=== PATIENT | female | born 2000 | race African-American/Black ===

== ENCOUNTER 2018-10-02 17:22 | Emergency (ER) | payer SELFPAY ==
[~2018-10-02] VITALS: Ht 165.1 cm; Wt 69.9 kg
--- NOTE | 2018-10-02 18:16 | ED.ADGEN ---
Past History Past Medical History: No Pertinent History Past Surgical History: No Surgical History Alcohol Use: Occasionally Drug Use: None Adult General Chief Complaint Chief Complaint ".. I got this Rt flank pain and mid abdomen pain the last couple days... My mom thinks it my gall bladder..." HPI HPI Patient is a 18 year old female who presents with above hx and complaints of abd. pain on Rt side. Patient states pain seems to be in her mid abdomen to ri [facility] [place]. Pain started yesterday and has not improved. Patient states does not seem to be related to high-fat meals. No history of renal stones. Patient denies any intake bad food. Patient denies any trauma. Patient denies any history immunosuppression. Patient states he is just started her menstrual period. She denies any history of endometriosis or history of painful menses. She denies any history of STDs. Patient denies any vaginal discharge. No recent travel. Review of Systems Review of Systems Constitutional: Denies fever or chills [] Eyes: Denies change in visual acuity, redness, or eye pain [] HENT: Denies nasal congestion or sore throat [] Respiratory: Denies cough or shortness of breath [] Cardiovascular: No additional information not addressed in HPI [] GI: complaints of right sided abdominal pain, nausea,. Denies vomiting, bloody stools or diarrhea [] : Denies dysuria or hematuria [] Musculoskeletal: Denies back pain or joint pain [] Integument: Denies rash or skin lesions [] Neurologic: Denies headache, focal weakness or sensory changes [] Endocrine: Denies polyuria or polydipsia [] All other systems were reviewed and found to be within normal limits, except as documented in this note. Family History Family History Mother had gall stones Current Medications Current Medications Current Medications Medications (Trade) Dose Ordered Sig/Clay Start Time Stop Time Status Last Admin Dose Admin Ceftriaxone Sodium 1 gm/ Sodium Chloride 50 ml @ 100 mls/hr 1X ONCE 10/02/18 22:15 10/02/18 22:44 DC 10/02/18 22:32 100 MLS/HR Ceftriaxone Sodium (Rocephin) 1 gm STK-MED ONCE 10/02/18 22:22 10/02/18 22:23 DC Famotidine (Pepcid Vial) 20 mg 1X ONCE 10/02/18 20:00 10/02/18 20:01 DC 10/02/18 20:53 20 MG Iohexol (Omnipaque 240 Mg/ml) 30 ml 1X ONCE 10/02/18 22:45 10/02/18 22:46 DC 10/03/18 00:00 30 ML Iohexol (Omnipaque 300 Mg/ml) 75 ml 1X ONCE 10/02/18 22:45 10/02/18 22:46 DC 10/03/18 00:00 75 ML Lactated Ringer's 1,000 ml @ 1,000 mls/hr 1X ONCE 10/02/18 22:15 10/02/18 23:14 DC 10/02/18 22:32 1,000 MLS/HR Metronidazole 100 ml @ 100 mls/hr 1X ONCE 10/02/18 22:15 10/02/18 23:14 DC 10/02/18 23:10 100 MLS/HR Morphine Sulfate (Morphine 10mg Syringe) 10 mg 1X ONCE 10/03/18 02:00 10/03/18 02:05 DC 10/03/18 02:04 10 MG Ondansetron HCl (Zofran) 8 mg 1X ONCE 10/03/18 02:00 10/03/18 02:01 DC 10/03/18 01:50 8 MG Sodium Chloride 50 ml @ As Directed STK-MED ONCE 10/02/18 22:22 10/02/18 22:23 DC See nursing for home medications Allergies Allergies Allergies Coded Allergies Type Severity Reaction Last Updated Verified No Known Drug Allergies 10/02/18 No Physical Exam Physical Exam Constitutional: Well developed, well nourished, moderately acute distress, non- toxic appearance. [] HENT: Normocephalic, atraumatic, bilateral external ears normal, oropharynx moist, no oral exudates, nose normal. [] Eyes: PERRLA, EOMI, conjunctiva normal, no discharge. [] Neck: Normal range of motion, no tenderness, supple, no stridor. [] Cardiovascular:Heart rate regular rhythm, no murmur [] Lungs & Thorax: Bilateral breath sounds equal at apex on auscultation [] Abdomen: Bowel sounds normal, soft, right mid and lower abdomen tenderness, no masses, no pulsatile masses. Does have some mild rebound to right side. Rectal exam heart stool in vault. Bimanual vaginal exam has tenderness and right adnexal area. No obvious discharge. No cervical motion tenderness. Skin: Warm, dry, no erythema, no rash. [] Back: No tenderness, no CVA tenderness. [] Extremities: No tenderness, no cyanosis, no clubbing, ROM intact, no edema. [] Very mild psoas on right on heeltap-somewhat equivocal Neurologic: Alert and oriented X 3, normal motor function, normal sensory function, no focal deficits noted. [] Psychologic: Affect anxious, judgement normal, mood normal. [] Current Patient Data Vital Signs Vital Signs Date Time Temp Pulse Resp B/P (MAP) Pulse Ox O2 Delivery O2 Flow Rate FiO2 10/03/18 02:35 98.8 81 14 122/74 (90) 100 Room Air Lab Results Laboratory Tests Test 10/02/18 18:00 10/02/18 18:16 10/02/18 20:40 Urine Collection Type Unknown Urine Color Red Urine Clarity Turbid Urine pH 6.0 Urine Specific Leighton >=1.030 Urine Protein >100 mg/dl (NEG-TRACE) Urine Glucose (UA) Neg mg/dL (NEG) Urine Ketones (Stick) Neg mg/dL (NEG) Urine Blood Large (NEG) Urine Nitrite Neg (NEG) Urine Bilirubin Neg (NEG) Urine Urobilinogen Dipstick 0.2 mg/dL (0.2 mg/dL) Urine Leukocyte Esterase Neg (NEG) Urine RBC Tntc /HPF (0-2) Urine WBC 0 /HPF (0-4) Urine Squamous Epithelial Cells Mod /LPF Urine Bacteria 0 /HPF (0-FEW) Urine Mucus Slight /LPF Urine Opiates Screen Neg (NEG) Urine Methadone Screen Neg (NEG) Urine Barbiturates Neg (NEG) Urine Phencyclidine Screen Neg (NEG) Urine Amphetamine/Methamphetamine Neg (NEG) Urine Benzodiazepines Screen Neg (NEG) Urine Cocaine Screen Neg (NEG) Urine Cannabinoids Screen Neg (NEG) Urine Ethyl Alcohol Neg (NEG) POC Urine HCG, Qualitative hcg negative (Negative) White Blood Count 8.2 x10^3/uL (4.0-11.0) Red Blood Count 3.52 x10^6/uL (3.50-5.40) Hemoglobin 10.4 g/dL (12.0-15.5) L Hematocrit 31.6 % (36.0-47.0) L Mean Corpuscular Volume 90 fL (79-100) Mean Corpuscular Hemoglobin 30 pg (25-35) Mean Corpuscular Hemoglobin Concent 33 g/dL (31-37) Red Cell Distribution Width 12.6 % (11.5-14.5) Platelet Count 446 x10^3/uL (140-400) H Neutrophils (%) (Auto) 70 % (31-73) Lymphocytes (%) (Auto) 22 % (24-48) L Monocytes (%) (Auto) 6 % (0-9) Eosinophils (%) (Auto) 1 % (0-3) Basophils (%) (Auto) 1 % (0-3) Neutrophils # (Auto) 5.8 x10^3uL (1.8-7.7) Lymphocytes # (Auto) 1.8 x10^3/uL (1.0-4.8) Monocytes # (Auto) 0.5 x10^3/uL (0.0-1.1) Eosinophils # (Auto) 0.1 x10^3/uL (0.0-0.7) Basophils # (Auto) 0.1 x10^3/uL (0.0-0.2) Prothrombin Time 10.4 SEC (9.4-11.4) Prothrombin Time INR 1.0 (0.9-1.1) PTT 26 SEC (23-33) Sodium Level 141 mmol/L (136-145) Potassium Level 3.4 mmol/L (3.5-5.1) L Chloride Level 106 mmol/L (98-107) Carbon Dioxide Level 27 mmol/L (21-32) Anion Gap 8 (6-14) Blood Urea Nitrogen 8 mg/dL (7-20) Creatinine 0.8 mg/dL (0.6-1.0) Estimated GFR (Cockcroft-Gault) 110.7 Glucose Level 93 mg/dL (70-99) Calcium Level 8.7 mg/dL (8.5-10.1) Total Bilirubin 0.3 mg/dL (0.2-1.0) Direct Bilirubin 0.1 mg/dL (0.0-0.2) Aspartate Amino Transferase (AST) 17 U/L (15-37) Alanine Aminotransferase (ALT) 14 U/L (14-59) Alkaline Phosphatase 73 U/L (46-116) Total Protein 7.7 g/dL (6.4-8.2) Albumin 3.3 g/dL (3.4-5.0) L Amylase Level 79 U/L (25-115) Lipase 86 U/L (73-393) EKG EKG [] Radiology/Procedures Radiology/Procedures My interpretation of Acute Abdomen film- shows no acute cardiopulmonary findings. No free air under diaphragm. Nonspecific bowel gas pattern. [] IMPRESSION: 1. There is free fluid within the abdomen and pelvis which is more than typically seen and suggestive of a pathologic process. There is also some edema seen to the mesentery within the pelvis. 2. The appendix is partially visualized and appears mildly dilated. This courses through a region of fluid therefore difficult to tell if there is adjacent inflammatory changes however given the dilation correlation is needed as to whether the patient is having symptoms of appendicitis given that if there is high clinical concern causes such as an early appendicitis is within the differential. Given that the dilation is only borderline however the diagnosis is not certain. If unclear clinically and further information is desired a follow-up CT could be obtained at a later time to assess for further increase in size of the appendix. 3. Within the pelvis there is a linear region of high density seen along the peritoneum. Difficult to tell if this is secondary to peritoneal enhancement from inflammation to the peritoneum or if this is from a small vessel coursing through the region. 4. Periportal edema within the liver. This is a nonspecific finding and can be secondary to the patient's hydration status however inflammation of the liver or biliary tree can also have this appearance. 5. There is some fullness of the left adnexa. Would correlate with symptoms in the region to ensure there is not a pathologic process and if further information is desired pelvic ultrasound could further evaluate Electronically signed by: Brisa Kaufman MD (10/03/2018 12:48 AM) [facility] DICTATED AND SIGNED BY: BRISA KAUFMAN MD DATE: 10/03/18 0048 CC: CHANTEL CH MD; PCP,NO ~ Course & Med Decision Making Course & Med Decision Making Pertinent Labs and Imaging studies reviewed. (See chart for details) Discussed presentation, testing, treatment plan with Dr. Winn and Dr. Beck. Patient to be transferred to [facility] for further evaluation and treatment. [] Final Impression Final Impression 1. Abdomen Pain[] 2. Hematuria-menstrual just started 3. Ovarian cyst 4. Dilated Appendix on CT- Early appendicitis ? 5. Normocytic anemia Dragon Disclaimer Dragon Disclaimer This electronic medical record was generated, in whole or in part, using a voice recognition dictation system. Discharge Summary Visit Information Final Diagnosis Problems Medical Problems: (1) Pain in the abdomen Status: Acute Brief Hospital Course Allergies Allergies Coded Allergies Type Severity Reaction Last Updated Verified No Known Drug Allergies 10/02/18 No Vital Signs Vital Signs Date Time Temp Pulse Resp B/P (MAP) Pulse Ox O2 Delivery O2 Flow Rate FiO2 10/03/18 02:35 98.8 81 14 122/74 (90) 100 Room Air Lab Results Laboratory Tests Test 10/02/18 18:00 10/02/18 18:16 10/02/18 20:40 Urine Collection Type Unknown Urine Color Red Urine Clarity Turbid Urine pH 6.0 Urine Specific Leighton >=1.030 Urine Protein >100 mg/dl (NEG-TRACE) Urine Glucose (UA) Neg mg/dL (NEG) Urine Ketones (Stick) Neg mg/dL (NEG) Urine Blood Large (NEG) Urine Nitrite Neg (NEG) Urine Bilirubin Neg (NEG) Urine Urobilinogen Dipstick 0.2 mg/dL (0.2 mg/dL) Urine Leukocyte Esterase Neg (NEG) Urine RBC Tntc /HPF (0-2) Urine WBC 0 /HPF (0-4) Urine Squamous Epithelial Cells Mod /LPF Urine Bacteria 0 /HPF (0-FEW) Urine Mucus Slight /LPF Urine Opiates Screen Neg (NEG) Urine Methadone Screen Neg (NEG) Urine Barbiturates Neg (NEG) Urine Phencyclidine Screen Neg (NEG) Urine Amphetamine/Methamphetamine Neg (NEG) Urine Benzodiazepines Screen Neg (NEG) Urine Cocaine Screen Neg (NEG) Urine Cannabinoids Screen Neg (NEG) Urine Ethyl Alcohol Neg (NEG) Bedside Urine HCG, Qualitative hcg negative (Negative) White Blood Count 8.2 x10^3/uL (4.0-11.0) Red Blood Count 3.52 x10^6/uL (3.50-5.40) Hemoglobin 10.4 g/dL (12.0-15.5) Hematocrit 31.6 % (36.0-47.0) Mean Corpuscular Volume 90 fL (79-100) Mean Corpuscular Hemoglobin 30 pg (25-35) Mean Corpuscular Hemoglobin Concent 33 g/dL (31-37) Red Cell Distribution Width 12.6 % (11.5-14.5) Platelet Count 446 x10^3/uL (140-400) Neutrophils (%) (Auto) 70 % (31-73) Lymphocytes (%) (Auto) 22 % (24-48) Monocytes (%) (Auto) 6 % (0-9) Eosinophils (%) (Auto) 1 % (0-3) Basophils (%) (Auto) 1 % (0-3) Neutrophils # (Auto) 5.8 x10^3uL (1.8-7.7) Lymphocytes # (Auto) 1.8 x10^3/uL (1.0-4.8) Monocytes # (Auto) 0.5 x10^3/uL (0.0-1.1) Eosinophils # (Auto) 0.1 x10^3/uL (0.0-0.7) Basophils # (Auto) 0.1 x10^3/uL (0.0-0.2) Prothrombin Time 10.4 SEC (9.4-11.4) Prothromb Time International Ratio 1.0 (0.9-1.1) Activated Partial Thromboplast Time 26 SEC (23-33) Sodium Level 141 mmol/L (136-145) Potassium Level 3.4 mmol/L (3.5-5.1) Chloride Level 106 mmol/L (98-107) Carbon Dioxide Level 27 mmol/L (21-32) Anion Gap 8 (6-14) Blood Urea Nitrogen 8 mg/dL (7-20) Creatinine 0.8 mg/dL (0.6-1.0) Estimated GFR (Cockcroft-Gault) 110.7 Glucose Level 93 mg/dL (70-99) Calcium Level 8.7 mg/dL (8.5-10.1) Total Bilirubin 0.3 mg/dL (0.2-1.0) Direct Bilirubin 0.1 mg/dL (0.0-0.2) Aspartate Amino Transf (AST/SGOT) 17 U/L (15-37) Alanine Aminotransferase (ALT/SGPT) 14 U/L (14-59) Alkaline Phosphatase 73 U/L (46-116) Total Protein 7.7 g/dL (6.4-8.2) Albumin 3.3 g/dL (3.4-5.0) Amylase Level 79 U/L (25-115) Lipase 86 U/L (73-393) Brief Hospital Course Ms. Willson is a 18 old female who presented with abd. pain. Transfer to [facility] Dr. Winn, Consult to Surgery. Possible early appendicitis . Discharge Information Condition at Discharge: Stable Dischare Medications Current Medications Lactated Ringer's 1,000 ml @ 1,000 mls/hr Q1H IV Last administered on 10/02/18at 20:51; Admin Dose 1,000 MLS/HR; Start 10/02/18 at 19:44; Stop 10/02/18 at 20:43; Status DC Ondansetron HCl (Zofran) 8 mg 1X ONCE IV Last administered on 10/02/18at 20:52; Admin Dose 8 MG; Start 10/02/18 at 20:00; Stop 10/02/18 at 20:01; Status DC Famotidine (Pepcid Vial) 20 mg 1X ONCE IVP Last administered on 10/02/18at 20:53; Admin Dose 20 MG; Start 10/02/18 at 20:00; Stop 10/02/18 at 20:01; Status DC Morphine Sulfate (Morphine 10mg Syringe) 10 mg 1X ONCE SQ Last administered on 10/02/18at 22:33; Admin Dose 10 MG; Start 10/02/18 at 22:30; Stop 10/02/18 at 22:31; Status DC Ceftriaxone Sodium 1 gm/ Sodium Chloride 50 ml @ 100 mls/hr 1X ONCE IV Last administered on 10/02/18at 22:32; Admin Dose 100 MLS/HR; Start 10/02/18 at 22:15; Stop 10/02/18 at 22:44; Status DC Metronidazole 100 ml @ 100 mls/hr 1X ONCE IV Last administered on 10/02/18at 23:10; Admin Dose 100 MLS/HR; Start 10/02/18 at 22:15; Stop 10/02/18 at 23:14; Status DC Lactated Ringer's 1,000 ml @ 1,000 mls/hr 1X ONCE IV Last administered on 10/02/18at 22:32; Admin Dose 1,000 MLS/HR; Start 10/02/18 at 22:15; Stop 10/02/18 at 23:14; Status DC Sodium Chloride 50 ml @ As Directed STK-MED ONCE .ROUTE ; Start 10/02/18 at 22:22; Stop 10/02/18 at 22:23; Status DC Ceftriaxone Sodium (Rocephin) 1 gm STK-MED ONCE .ROUTE ; Start 10/02/18 at 22:22; Stop 10/02/18 at 22:23; Status DC Iohexol (Omnipaque 240 Mg/ml) 30 ml 1X ONCE PO Last administered on 10/03/18at 00:00; Admin Dose 30 ML; Start 10/02/18 at 22:45; Stop 10/02/18 at 22:46; Status DC Iohexol (Omnipaque 300 Mg/ml) 75 ml 1X ONCE IV Last administered on 10/03/18at 00:00; Admin Dose 75 ML; Start 10/02/18 at 22:45; Stop 10/02/18 at 22:46; Status DC Ondansetron HCl (Zofran) 8 mg 1X ONCE IV Last administered on 10/03/18at 01:50; Admin Dose 8 MG; Start 10/03/18 at 02:00; Stop 10/03/18 at 02:01; Status DC Morphine Sulfate (Morphine 10mg Syringe) 10 mg 1X ONCE SQ Last administered on 10/03/18at 02:04; Admin Dose 10 MG; Start 10/03/18 at 02:00; Stop 10/03/18 at 02:05; Status DC Dragon Disclaimer This chart was dictated in whole or in part using Voice Recognition software in a busy, high-work load, and often noisy Emergency Department environment. It may contain unintended and wholly unrecognized errors or omissions. CHANTEL CH MD Oct 02, 2018 18:16
[2018-10-02 18:42] LABS: BILIRUBIN,URINE NEG (NEG); CLARITY,URINE TURBID; COLOR,URINE RED; GLUCOSE,URINE NEG (NEG)
[2018-10-02 18:43] LABS: BACTERIA,URINE 0 /HPF (0-FEW); NITRITE,URINE NEG (NEG); RBC,URINE TNTC /HPF (0-2); SQUAMOUS EPITHELIAL CELL,UR MOD /LPF; UROBILINOGEN,URINE 0.2 mg/dL (0.2 mg/dL); WBC,URINE 0 /HPF (0-4)
[2018-10-02 18:47] LABS: BARBITURATES NEG (NEG); BENZODIAZEPINES NEG (NEG); CANNABINOIDS NEG (NEG); COCAINE NEG (NEG); METHADONE NEG (NEG); OPIATES NEG (NEG); PHENCYCLIDINE NEG (NEG)
[2018-10-02 18:48] LABS: AMPHETAMINE/METHAMPHETAMINE NEG (NEG)
--- NOTE | 2018-10-02 20:39 | RAD ---
Abdominal and Pelvis CT, Without Contrast: History: Right upper quadrant pain. Comparison: None. Procedure: Axial images are obtained of the abdomen and pelvis, without IV or oral contrast. CT Abdomen without Contrast: Findings: Evaluation of solid organs is limited without contrast. Evaluation of stomach and bowel is limited without oral contrast. The gallbladder is collapsed but otherwise appears normal. There is a trace of free fluid in the paracolic gutters. Liver: Normal. Spleen: Normal. Pancreas: Normal. Adrenal Glands: Normal. Kidneys: Normal. There is no free air or free fluid. There is no lymphadenopathy. Impression: Please see CT Pelvis without Contrast. End Impression. CT Pelvis without Contrast: Findings: The urinary bladder appears normal. There is mild to moderate free fluid. There is no lymphadenopathy. There is no pericolonic inflammation identified. The appendix is not seen. Impression: Mild to moderate free fluid in the pelvis. This is greater than expected for physiologic activity. A ruptured ovarian cyst is possible. must be excluded in order to exclude possible ruptured ectopic. End impression PQRS Compliance Statement: One or more of the following individualized dose reduction techniques were utilized for this examination: 1. Automated exposure control 2. Adjustment of the mA and/or kV according to patient size 3. Use of iterative reconstruction technique Electronically signed by: Karri Zazueta III, MD (10/02/2018 8:36 PM) [facility]
[2018-10-02] MEDS: IV RINGERS SOLUTION,LACTATED 1,000 ML IV SCH (20:51)
[2018-10-02] MEDS: ONDANSETRON PF 4 MG/2 ML VIAL. IV ONE (20:52)
[2018-10-02] MEDS: FAMOTIDINE 20 MG/2 ML VIAL IVP ONE (20:53)
[2018-10-02 21:02] LABS: BASO # 0.1 x10^3/uL (0.0-0.2); BASO % 1 % (0-3); EOS # 0.1 x10^3/uL (0.0-0.7); EOS % 1 % (0-3); HEMATOCRIT 31.6 % (36.0-47.0); HEMOGLOBIN 10.4 g/dL (12.0-15.5); LYMPH # 1.8 x10^3/uL (1.0-4.8); LYMPH % 22 % (24-48); MEAN CORPUSCULAR HEMOGLOBIN 30 pg (25-35); MEAN CORPUSCULAR HGB CONC 33 g/dL (31-37); MEAN CORPUSCULAR VOLUME 90 fL (79-100); MONO # 0.5 x10^3/uL (0.0-1.1); MONO % 6 % (0-9); NEUT # 5.8 x10^3uL (1.8-7.7); NEUT % 70 % (31-73); PLATELET COUNT 446 x10^3/uL (140-400); RED BLOOD COUNT 3.52 x10^6/uL (3.50-5.40); RED CELL DISTRIBUTION WIDTH 12.6 % (11.5-14.5); WHITE BLOOD COUNT 8.2 x10^3/uL (4.0-11.0)
[2018-10-02 21:19] LABS: ALBUMIN 3.3 g/dL (3.4-5.0); CALCIUM 8.7 mg/dL (8.5-10.1); CREATININE 0.8 mg/dL (0.6-1.0); DIRECT BILIRUBIN 0.1 mg/dL (0.0-0.2); GFR 110.7; POTASSIUM 3.4 mmol/L (3.5-5.1); TOTAL BILIRUBIN 0.3 mg/dL (0.2-1.0); TOTAL PROTEIN 7.7 g/dL (6.4-8.2)
[2018-10-02] MEDS ORDERED: IV NORMAL SALINE 50ML 50 ML ONE (22:22)
[2018-10-02] MEDS ORDERED: cefTRIAXone SODIUM 1 GM VIAL ONE (22:22)
[2018-10-02] MEDS: IV RINGERS SOLUTION,LACTATED 1,000 ML IV ONE (22:32)
[2018-10-02] MEDS: MORPHINE SULFATE 10 MG/ML SYRINGE. SQ ONE (22:33)
--- NOTE | 2018-10-02 23:00 | RAD ---
Acute Abdominal Series: Technique: PA view of the chest and supine and upright views of the abdomen were obtained. History: Pain. Comparison: None. Findings: The lungs and pleural margins are clear. There is air and stool scattered throughout portions the colon. There is a paucity of small bowel gas. There is no free air. Impression: Nonobstructive bowel gas pattern suggesting constipation. Electronically signed by: Karri Zazueta III, MD (10/02/2018 10:57 PM) [facility]
[2018-10-03] MEDS: IOHEXOL 300 MG/ML 75 ML VIAL. IV ONE
[2018-10-03] MEDS: IOHEXOL 240 MG/ML 50ML VIAL. PO ONE
--- NOTE | 2018-10-03 00:51 | RAD ---
INDICATION: Continued severe right sided abdominal pain. Hx gallbladder crystals and sludge per sonogram COMPARISON: One day prior TECHNIQUE: Axial CT images obtained through the abdomen and pelvis with contrast. One or more of the following individualized dose reduction techniques were utilized for this examination: 1. Automated exposure control; 2. Adjustment of the mA and/or kV according to patient size; 3. Use of iterative reconstruction technique. FINDINGS: Right lower lung nodule is again seen measuring up to about 7 mm. Abdominal aorta is not aneurysmal. There is some periportal edema within the liver. Low-density adjacent to the falciform which is commonly from focal fat. Free fluid is identified within the pelvis as well as some within the abdomen including adjacent to the liver. Small amount of layering high density material within the gallbladder suspected. No peripancreatic fluid collection. Spleen unremarkable. No left-sided hydronephrosis. No right-sided hydronephrosis. There is some fullness of the left adnexa. Suspect a small amount of high density of the peritoneum within the pelvis. Also possible that this is secondary to a small vessel coursing through the region. The appendix is partially visualized measuring up to about 6 to 7 mm. No dilated loops of bowel to suggest obstruction. Suspected disc protrusions within the lumbar spine including at L5-S1. IMPRESSION: 1. There is free fluid within the abdomen and pelvis which is more than typically seen and suggestive of a pathologic process. There is also some edema seen to the mesentery within the pelvis. 2. The appendix is partially visualized and appears mildly dilated. This courses through a region of fluid therefore difficult to tell if there is adjacent inflammatory changes however given the dilation correlation is needed as to whether the patient is having symptoms of appendicitis given that if there is high clinical concern causes such as an early appendicitis is within the differential. Given that the dilation is only borderline however the diagnosis is not certain. If unclear clinically and further information is desired a follow-up CT could be obtained at a later time to assess for further increase in size of the appendix. 3. Within the pelvis there is a linear region of high density seen along the peritoneum. Difficult to tell if this is secondary to peritoneal enhancement from inflammation to the peritoneum or if this is from a small vessel coursing through the region. 4. Periportal edema within the liver. This is a nonspecific finding and can be secondary to the patient's hydration status however inflammation of the liver or biliary tree can also have this appearance. 5. There is some fullness of the left adnexa. Would correlate with symptoms in the region to ensure there is not a pathologic process and if further information is desired pelvic ultrasound could further evaluate Electronically signed by: Alejandro Hopkins MD (10/03/2018 12:48 AM) [facility]
[2018-10-03] MEDS: ONDANSETRON PF 4 MG/2 ML VIAL. IV ONE (01:50)
[2018-10-03] MEDS: MORPHINE SULFATE 10 MG/ML SYRINGE. SQ ONE (02:04)
[2018-10-03 02:35] VITALS: BP 122/74
== END 2018-10-03 03:16 | disposition short-term general hospital (02) ==
LOC: ER 17:22
DX: N83.201 Unspecified ovarian cyst, right side (principal); R31.9 Hematuria, unspecified; D64.9 Anemia, unspecified
CPT/HCPCS: 36415; 74022; 74176; 74177; 80048; 80076; 80307; 81001; 81025; 82150; 83690; 85025; 85610; 85730; 96365; 96367; 96372; 96375; 96376; 99285; J0696; J2270; J2405; J3490; J7120; Q9966; Q9967; 96361